=== PATIENT | male | born 1965 | race Caucasian/White ===

== ENCOUNTER 2018-07-15 05:51 | Day surgery (SDC) | payer BC ==
[2018-07-12 13:57] LABS: ALANINE AMINOTRANSFERASE 29 U/L (12-78); ALBUMIN 4.5 g/dL (3.4-5.0); ANION GAP 7 mmol/L (5-15); CHLORIDE 107 mmol/L (98-107)
[2018-07-12 14:00] LABS: ALKALINE PHOSPHATASE 63 U/L (45-117); BILIRUBIN,TOTAL 0.9 mg/dL (0.2-1.0); CREATININE 1.12 mg/dL (0.7-1.3); TOTAL PROTEIN 7.8 g/dL (6.4-8.2)
[~2018-07-15] VITALS: Ht 177.8 cm; Wt 91.4 kg
[~2018-07-15 05:51] MED LIST: LISI-170 PO
[2018-07-15] MEDS ORDERED: LACTATED RINGERS 1,000 ML IV SCH (06:09)
[2018-07-15 06:19] VITALS: BP 143/87
[2018-07-15] MEDS ORDERED: BUPIVACAINE/PF-EPI 0.5% 1:200K ONE (06:43)
[2018-07-15] MEDS ORDERED: ONDANSETRON ODT 8 MG ONE (07:14)
[2018-07-15] MEDS ORDERED: GABAPENTIN 300 MG CAPSULE ONE (07:14)
[2018-07-15] MEDS ORDERED: ACETAMINOPHEN 500 MG TABLET ONE (07:15)
[2018-07-15] MEDS ORDERED: MIDAZOLAM 1 MG/ML, 2ML ONE (07:25)
[2018-07-15] MEDS ORDERED: FENTANYL PF 250 MCG/5ML ONE (07:26)
[2018-07-15] MEDS ORDERED: ROCURONIUM 10MG/ML,5ML ONE (07:28)
[2018-07-15] MEDS ORDERED: PHENYLEPHRINE 10 MG/ML ONE (07:28)
[2018-07-15] MEDS ORDERED: LIDOCAINE 2% 100MG/5ML SYRINGE ONE (07:28)
[2018-07-15] MEDS ORDERED: SUCCINYLCHOLINE 20 MG/ML, 10ML ONE (07:28)
[2018-07-15] MEDS ORDERED: ONDANSETRON ODT 8 MG PO ONE (07:30)
[2018-07-15] MEDS ORDERED: GABAPENTIN 300 MG CAPSULE PO ONE (07:30)
[2018-07-15] MEDS ORDERED: ACETAMINOPHEN 500 MG TABLET PO ONE (07:30)
[2018-07-15] MEDS ORDERED: METOPROLOL 1 MG/ML, 5ML IV PRN (08:30)
[2018-07-15] MEDS ORDERED: ONDANSETRON 2MG/ML, 2ML IV PRN (08:30)
[2018-07-15] MEDS ORDERED: PROMETHAZINE 25 MG/ML, 1ML IV PRN (08:30)
[2018-07-15] MEDS ORDERED: hydrALAzine 20 MG/ML, 1ML IV PRN (08:30)
[2018-07-15] MEDS ORDERED: ALBUTEROL/IPRATROPIUM 2.5MG/0.5MG, 3 ML NPPB PRN (08:30)
[2018-07-15] MEDS ORDERED: MIDAZOLAM 1 MG/ML, 2ML IV PRN (08:30)
[2018-07-15] MEDS ORDERED: HYDROmorphone 2 MG/ML, 1ML IVPush PRN (08:30)
[2018-07-15] MEDS ORDERED: DEXAMETHASONE 4 MG/ML, 1ML ONE (08:54)
[2018-07-15] MEDS ORDERED: PROPOFOL 10 MG/ML, 20ML ONE (08:54)
[2018-07-15] MEDS ORDERED: OXYcodone 5 MG/5 ML ORAL.SOL UDC ONE ×2 (09:29→09:34)
[2018-07-15] MEDS ORDERED: FENTANYL PF 100 MCG/2ML ONE (09:29)
[2018-07-15] MEDS: OXYcodone 5 MG/5 ML ORAL.SOL UDC PO PRN ×2 (09:31→09:35)
[2018-07-15] MEDS: FENTANYL PF 100 MCG/2ML IV PRN ×2 (09:35→09:42)
== END 2018-07-15 11:50 | disposition home or self-care (01) ==
LOC: OUT 05:51
PROVIDERS: ATTEND Surgery
DX: C73 Malignant neoplasm of thyroid gland (principal); I10 Essential (primary) hypertension; K21.9 Gastro-esophageal reflux disease without esophagitis; Z87.891 Personal history of nicotine dependence
CPT/HCPCS: 36415; 60220; 80053; 88307; C1760; J0330; J1100; J2250; J2370; J2704; J3010; J7120; Q0162

== ENCOUNTER 2018-08-12 05:49 | Inpatient (IN) | payer BC, OTHER ==
[~2018-08-12] VITALS: Ht 177.8 cm; Wt 94.9 kg
[2018-08-12 06:37] VITALS: BP 156/98
[2018-08-12] MEDS ORDERED: LACTATED RINGERS 1,000 ML IV SCH (06:43)
[2018-08-12] MEDS ORDERED: BUPIVACAINE/PF-EPI 0.5% 1:200K ONE (06:59)
[2018-08-12] MEDS ORDERED: LIDOCAINE-MPF 1%, 2ML INFIL ONE (07:00)
[2018-08-12] MEDS ORDERED: MIDAZOLAM 1 MG/ML, 2ML ONE (07:15)
[2018-08-12] MEDS ORDERED: PROPOFOL 50 ML ONE (07:15)
[2018-08-12] MEDS ORDERED: FENTANYL PF 250 MCG/5ML ONE (07:15)
[2018-08-12] MEDS ORDERED: DEXAMETHASONE 4 MG/ML, 1ML ONE (07:31)
[2018-08-12] MEDS ORDERED: CEFAZOLIN 1,000 MG ONE (07:31)
[2018-08-12] MEDS ORDERED: SUCCINYLCHOLINE 20 MG/ML, 10ML ONE (07:31)
[2018-08-12] MEDS ORDERED: ROCURONIUM 10MG/ML,5ML ONE (07:31)
[2018-08-12] MEDS ORDERED: PROMETHAZINE 12.5 MG SUPP PR PRN (08:00)
[2018-08-12] MEDS ORDERED: OXYcodone 5 MG/5 ML ORAL.SOL UDC PO PRN (08:00)
[2018-08-12] MEDS ORDERED: EPHEDRINE 50 MG/ML, 1ML IM PRN (08:00)
[2018-08-12] MEDS ORDERED: MEPERIDINE/PF 25MG/0.5ML IVPush PRN (08:00)
[2018-08-12] MEDS ORDERED: ACETAMINOPHEN 325 MG TABLET PO PRN ×2 (08:00→11:00)
[2018-08-12] MEDS ORDERED: ONDANSETRON 2MG/ML, 2ML IV PRN (08:00)
[2018-08-12] MEDS ORDERED: MIDAZOLAM 1 MG/ML, 2ML IV PRN (08:00)
[2018-08-12] MEDS ORDERED: ONDANSETRON ODT 8 MG PO PRN (08:00)
[2018-08-12] MEDS ORDERED: DIPHENHYDRAMINE 50 MG/ML, 1ML IVPush PRN (08:00)
[2018-08-12] MEDS ORDERED: FENTANYL PF 100 MCG/2ML ONE ×2 (09:06→09:21)
[2018-08-12] MEDS ORDERED: ACETAMINOPHEN 650 MG/20.3 ML UDC ONE (09:06)
[2018-08-12] MEDS ORDERED: OXYcodone 5 MG/5 ML ORAL.SOL UDC ONE (09:07)
[2018-08-12] MEDS: FENTANYL PF 100 MCG/2ML IV PRN ×4 (09:10→09:40)
[2018-08-12] MEDS ORDERED: MORPHINE SULFATE 4 MG/ML, 1ML ONE (09:48)
[2018-08-12] MEDS: MORPHINE SULFATE 4 MG/ML, 1ML IVPush PRN ×2 (09:50→09:55)
[2018-08-12 10:55] VITALS: BP 134/91
[2018-08-12] MEDS ORDERED: HYDROcodone/APAP 5/325 TABLET PO PRN (11:00)
[2018-08-12] MEDS ORDERED: ACETAMINOPHEN 650 MG SUPP PR PRN (11:00)
[2018-08-12] MEDS ORDERED: hydrALAzine 20 MG/ML, 1ML IV PRN (11:00)
[2018-08-12] MEDS ORDERED: OXYcodone IR 5MG TABLET PO PRN (11:00)
[2018-08-12 13:49] VITALS: BP 126/74
[2018-08-12] MEDS: ACETAMINOPHEN 325 MG TABLET PO SCH ×2 (13:52→21:26)
[2018-08-12] MEDS ORDERED: ONDANSETRON 2MG/ML, 2ML IVPush PRN (15:00)
[2018-08-12] MEDS: CALCIUM/VITAMIN D3 250-125 TABLET PO SCH ×2 (17:18→21:26)
[2018-08-12 21:01] VITALS: BP 125/79
[2018-08-12] MEDS: SODIUM CHLORIDE FLUSH 10ML SYR IVF SCH (21:26)
[2018-08-13 00:10] VITALS: BP 119/78
[2018-08-13 04:30] VITALS: BP 126/81
[2018-08-13] MEDS: ACETAMINOPHEN 325 MG TABLET PO SCH (06:02)
[2018-08-13 06:58] VITALS: BP 143/84
[2018-08-13] MEDS: CALCIUM/VITAMIN D3 250-125 TABLET PO SCH (09:00)
[2018-08-13] MEDS ORDERED: LISINOPRIL 20 MG TABLET PO SCH (09:00)
[2018-08-13] MEDS: SODIUM CHLORIDE FLUSH 10ML SYR IVF SCH (09:01)
[2018-08-13] MEDS ORDERED: HYDR-3240 PO (09:36)
[2018-08-13] MEDS ORDERED: LEVO175T2 PO (09:37)
[2018-08-13 10:00] VITALS: BP 134/90
== END 2018-08-13 10:30 | disposition home or self-care (01) | DRG 627 ==
LOC: OUT 05:49 → 4NOR 10:30 → OUT 10:42 → DCLOUNGE 08-13 10:21
PROVIDERS: ADMIT Surgery; ATTEND Surgery
PROC: 4A11X4G Monitoring of Peripheral Nervous Electrical Activity, Intraoperative, External Approach (ICD-10-PCS; 2018-08-12)
PROC: 0GTK0ZZ Resection of Thyroid Gland, Open Approach (ICD-10-PCS; principal; 2018-08-12 07:30)
DX: C73 Malignant neoplasm of thyroid gland (principal); E83.51 Hypocalcemia; I10 Essential (primary) hypertension; E89.0 Postprocedural hypothyroidism; G43.909 Migraine, unspecified, not intractable, without status migrainosus; Z82.49 Family history of ischemic heart disease and other diseases of the circulatory system; Z87.891 Personal history of nicotine dependence; Z79.899 Other long term (current) drug therapy; Z80.9 Family history of malignant neoplasm, unspecified
CPT/HCPCS: 36415; 82310; 83970; 88307; G0378; J0690; J1100; J2250; J2405; J2704; J3010; C1760; J0330; J7120

== ENCOUNTER 2019-11-28 10:06 | Outpatient (CLI) | payer OTHER ==
[~2019-11-28 10:06] MED LIST changes: +HYDR-3240 PO; +LEVO175T2 PO
== END 2019-11-28 23:59 | disposition home or self-care (01) ==
LOC: RAD 10:06
PROVIDERS: ATTEND Internal Medicine Endocrinology, Diabetes & Metabolism
DX: C73 Malignant neoplasm of thyroid gland (principal)
CPT/HCPCS: 78018

== ENCOUNTER → 2020-11-04 | Outpatient (CLI) | payer OTHER ==
[~2020-11-04] MED LIST changes: +HYDR-2214 PO; -HYDR-3240 PO
== END | disposition home or self-care (01) ==
LOC: PETCFH 12:44
PROVIDERS: ATTEND Internal Medicine Endocrinology, Diabetes & Metabolism
DX: C73 Malignant neoplasm of thyroid gland (principal)
CPT/HCPCS: 78815; A9552